=== PATIENT | female | born 1945 | race Caucasian/White ===

== ENCOUNTER → 2024-06-20 13:56 | Outpatient (CLI) | payer OTHER, MEDICARE, SELFPAY ==
--- NOTE | 2024-06-20 14:04 | DI.CT.S_ITS ---
PROCEDURE: CT UE LT WO CON INDICATIONS: PAIN JOINT SHOULDER LEFT TECHNIQUE: Noncontrast 0.75 mm thick sections acquired from the acromioclavicular joint to the inferior scapula, with coronal and sagittal reformatting. COMPARISON: [facility], CR, XR SHOULDER 2+ VIEWS LEFT, 02/19/2024, 10:06. FINDINGS: Image quality: Excellent. Bones: Mild degenerative changes of the acromioclavicular joint. Severe degenerative changes of the glenohumeral joint with joint space narrowing, subchondral cystic changes, and osteophytosis of the humeral head.. Calcification at the greater tuberosity, representing hydroxyapatite deposition disease. Additional chondrocalcinosis of the glenohumeral joint, representing CPPD arthropathy. No glenoid retroversion. No acute fracture or dislocation. Visualized left ribs are remarkable. Soft tissues: Large subscapularis bursitis. No significant subacromial/subdeltoid bursitis. No significant glenohumeral effusion. Visualized left lung is unremarkable. Status post aortic valve replacement. Coronary artery calcification, incompletely visualized. Moderate calcification of the aortic arch. 2.1 cm left thyroid nodule. IMPRESSION: 1. Severe degenerative changes of the glenohumeral joint. 2. 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 3. Large subscapular bursitis. 4. 2.1 cm left thyroid nodule. Recommend further evaluation with thyroid ultrasound. Dictated by: Mely Feliz M.D. on 06/21/2024 at 11:12 Approved by: Mely Feliz M.D. on 06/21/2024 at 11:18
== END ==
PROVIDERS: PCP Internal Medicine; Referring Provider Orthopaedic Surgery; Visit Provider Orthopaedic Surgery
DX: M11.012 Hydroxyapatite deposition disease, left shoulder (principal); M75.52 Bursitis of left shoulder; E04.1 Nontoxic single thyroid nodule; M25.512 Pain in left shoulder
CPT/HCPCS: 73200

== ENCOUNTER 2024-07-14 10:18 | Day surgery (SDC) | payer OTHER, MEDICARE, SELFPAY ==
[2024-06-30 13:37] VITALS: BMI 22.8
[2024-07-14] VITALS (13 sets, daily range): BP systolic 118–160; BP diastolic 45–62; PULSE 68–89; RESP 12–19; TEMP 36–36.7; O2SAT 93–99; BMI 22.8
--- NOTE | 2024-07-14 | DI.RAD.S_ITS ---
PROCEDURE: XR SHOULDER LT 1V INDICATIONS: TOTAL SHOULDER POST OP TECHNIQUE: Single view of the shoulder were acquired. COMPARISON: None. FINDINGS: Bones: Single frontal radiograph demonstrates reversed left shoulder arthroplasty with anatomic alignment of the prosthetic components. Scattered subcutaneous air overlying the left shoulder joint. No acute fracture or dislocation. Soft tissues: No suspicious soft tissue calcifications. IMPRESSION: Expected post operative appearance of reversed left shoulder arthroplasty. Dictated by: Noah Ferreira M.D. on 07/14/2024 at 16:40 Approved by: Noah Ferreira M.D. on 07/14/2024 at 16:42
--- NOTE | 2024-07-14 11:18 | PM.PREOP ---
Pre-operative Note Interval Note History & Physical reviewed/Exam performed by Physician: Yes Changes to H&P: No
[2024-07-14] MEDS: HYDROCODONE/ACET 5/325 TABLET 1 TAB PO ×2 (11:36→13:44)
[2024-07-14] MEDS: LACTATED RINGERS 1,000 ML 42 ML IV (11:38)
[2024-07-14] MEDS: CEFAZOLIN 2 GM/100 ML PREMIX 100 ML IV ×2 (12:14→20:05)
[2024-07-14] MEDS: TRANEXAMIC ACID 1,000 MG in SODIUM CHLORIDE 0.9% 100 ML 200 MG IV ×2 (12:18→13:02)
--- NOTE | 2024-07-14 12:26 | SUR.OPER ---
Beach chair with Stefann/Salbador shoulder positioner. Lower body on padded OR bed. Head in foam padded head cradle, secured with straps. Non-operative arm secured on gel pad across chest. Pillow under knees. Safety belt at chest. Cloth tape over blanket over lower legs.
--- NOTE | 2024-07-14 13:48 | PM.OP.1 ---
Operative Date/Time/Diagnoses Date of procedure: 07/14/24 Time of procedure: 13:48 Pre-op diagnosis: Left glenohumeral arthritis Post-op diagnosis: same Procedure & Clinicians Procedure: Left reverse total shoulder arthroplasty Same procedure as scheduled: Yes Indications: Indications: This is a 79-year-old female who has left glenohumeral arthritis. Symptoms have been present for years, insidious onset. Patient has failed a reasonable attempt at conservative therapy. After extensive discussion in clinic, they wished to go forward with surgery. Risks and benefits were described including the risk of infection, bleeding, damage to internal structures including nerves. We also discussed the risk of failure of surgery and the need for revision surgery as well as the risk of anesthesia. The patient expressed understanding with these risks and wished to go forward with surgery. Surgeon: Solomon Pedraza Superintendent Plant Protection: No Araiza Operative Notes Findings: Findings: Osteoarthritis of the glenoid and humeral head with 17? of glenoid anteversion as noted on preoperative imaging and under direct visualization Closure Type: primary Specimen(s): none sent Prosthetic devices, grafts, tissues, transplants, or devices: Tornier implants Base plate: standard 25 mm, full wedge Glenosphere: Standard 36 mm Stem: Perform 2+ Poly: 0, 55% coverage Estimated Blood Loss (mL): 200 Blood products transfused: none Procedure in detail: Patient was seen in the preoperative holding unit. The correct left shoulder was identified and marked with my initials. Again we discussed the risks and benefits of surgery and they wished to go forward with surgery. The patient was brought back to the operating room and placed supine on the operating table. Smooth endotracheal intubation was performed by anesthesia. All prominences were padded and they were placed into the beach chair position. Intravenous antibiotics were given. The left shoulder was then prepped with the standard sterile preparation and draping. A time-out was then performed in my initials were again identified on the correct shoulder. 1 g of IV tranexamic acid was given. A standard deltopectoral incision was made. Skin flaps were made. The cephalic vein was identified and retracted laterally. This was protected throughout the remainder of the case. Sharp dissection was made along the deltoid, subacromial and subcoracoid space to release adhesions. The conjoined tendon was identified and the axillary nerve was palpated and continuous using the tug test. It was protected throughout the remainder of the case. A brown retractor was placed underneath the deltoid muscle and a darach retractor underneath the conjoint tendon. The subscapularis muscle was ntoed to be intact. The anterior circumflex artery and associated veins on the lower border of the subscapularis were identified and tied off using 0-Vicryl. The biceps tendon was identified in the bicipital groove. This was released from its sheath, and taken from its origin on the glenoid and tied into the pectoralis tendon for a solid tenodesis. We then began a subscapularis peel. The subscapularis was tagged with an Ethibond suture. A 360 degree circumferential release of the subscapularis was performed with protection of the axillary nerve. The coracohumeral ligament was released at the base of the coracoid. The shoulder was then dislocated. Osteophytes were removed using combination of rongeur and osteotome. The rotator cuff was noted to be intact. An intramedullary guide was used set at version of 20?. Using an oscillating saw a conservative humeral head cut was made. Impaction reamers were reamed up to a size 2 stem with a built-in angle 135?. A neck protector was placed. Attention was then turned to the glenoid. After retracting the humeral head posteriorly a circumferential release was performed of the capsule with protection of the axillary nerve. The labrum was then released starting at the biceps anchor and going around the rim a small amount of triceps was released from the inferior glenoid. A center guide pin was then placed using the guide, followed by Reamer. After adequate cartilage was removed the boss was reamed and the centeral hole was drilled and measured. The base plate was then implanted and screwed into place with the wedge anterior in order to correct for anteversion of the glenoid. The peripheral screws were then sequentially drilled, measured, and placed. A 36 standard glenosphere was then selected and screwed into place onto the base plate. Turning back to the humerus, the humeral head was delivered and trialed with a +0 retentive. The arm was taken through range of motion and this was felt to be stable. The trial was then removed and a dilute Betadine wash was then performed with 1 L of sterile saline. Before placing the final implant, drill holes were made in the bicipital groove for the subscapularis repair, and sutures were passed through the drill holes. The final stem was then impacted into the humerus. The shoulder was then reduced and again brought through range of motion and was felt to be stable. The subscapularis was then repaired using a modified racking hitch with nice loupes. The deltopectoral interval was then closed with #2 Ethibond. The skin was closed with 2-0 vicryl and 3-0 Monocryl followed by Aquacel dressing. Patient was awoken from anesthesia and brought back to the postoperative recovery unit without issue. They were placed into a sling. Assisting participation: This operation could not have been safely performed (without compromising the technical results or length of the procedure) without the assistance of a skilled surgical garment assembler. The surgical garment assembler was medically necessary for proper positioning, retraction and manipulation of instruments, proper exposure, graft prep, and manipulation of tissue. Complications: none Post-operative Condition: stable Disposition: PACU Plan for aftercare: Postoperative instructions: Sling to remain on for 6 weeks. No external rotation past neutral for 6 weeks. Okay for the sling to come off for shower. Okay to shower over the Aquacel dressing. If any water gets underneath the dressing, remove the dressing. First postoperative visit in 2 weeks.
[2024-07-14] MEDS: HYDROMORPHONE 1 MG INJ IV (13:51)
[2024-07-14] MEDS: LACTATED RINGERS 1,000 ML 100 ML IV (14:00)
[2024-07-14] MEDS: hydrOXYzine HCL 25 MG TABLET PO (15:02)
[2024-07-14] MEDS: KETOROLAC 30 MG/ML VIAL 15 MG IV (15:02)
--- NOTE | 2024-07-14 16:39 | PT-IP ANOTE ---
Pt up to room after left reverse total shoulder. She is sleepy after surgery and wishes to initiate PT assessment next date.
[2024-07-14] MEDS: OXYCODONE IR 5 MG TABLET PO (16:47)
[2024-07-14 18:12] LABS: Hematocrit 31.4 % (36-46); Hemoglobin 9.9 g/dL (12.0-16.0)
[2024-07-14] MEDS: GABAPENTIN 300 MG CAPSULE 1200 MG PO (21:05)
[2024-07-14] MEDS: DOCUSATE 100 MG CAPSULE PO (21:05)
[2024-07-14] MEDS: HYDROCODONE/ACET 10/325 TABLET 1 TAB PO (21:05)
[2024-07-14] MEDS: ASPIRIN EC 81 MG TABLET PO (21:05)
[2024-07-14] MEDS: ACETAMINOPHEN 325 MG TABLET 650 MG PO (21:07)
[2024-07-15] MEDS: OXYCODONE IR 5 MG TABLET PO ×5 (02:28→22:02)
[2024-07-15] MEDS: ACETAMINOPHEN 325 MG TABLET 650 MG PO ×2 (02:28→07:20)
[2024-07-15] MEDS: CEFAZOLIN 2 GM/100 ML PREMIX 100 ML IV (03:57)
[2024-07-15 06:38] VITALS: BP 123/44; PULSE 64; RESP 14; TEMP 36.8; O2SAT 96
[2024-07-15 09:04] VITALS: BP 145/43; PULSE 77
[2024-07-15] MEDS: DOCUSATE 100 MG CAPSULE PO ×2 (09:05→20:03)
[2024-07-15] MEDS: ATORVASTATIN 20 MG TABLET PO (09:05)
[2024-07-15] MEDS: DULOXETINE 30 MG CAPSULE 60 MG PO (09:06)
[2024-07-15] MEDS: ASPIRIN EC 81 MG TABLET PO ×2 (09:07→20:03)
[2024-07-15] MEDS: METFORMIN HCL 500 MG TABLET 2000 MG PO (09:07)
[2024-07-15] MEDS: HYDROCODONE/ACET 5/325 TABLET 1 TAB PO ×3 (09:09→15:10)
--- NOTE | 2024-07-15 09:35 | PT.IIE ---
Current Diagnoses Primary osteoarthritis, left shoulder (07/14/24) Surgery Performed Operation Date: 07/14/24 12:45 Actual Procedures p Total Shoulder Arthroplasty - Reverse with biceps tenodesis(Left) - Solomon Pedraza MD Surgical History (Last Updated 06/30/24 @ 14:14 by Zofia Oliver, RN) History of cardiac cath (11/2019) History of reverse total replacement of right shoulder joint History of right cataract extraction History of total right knee replacement (2011) Hx of cholecystectomy Hx of eye surgery Hx of LASIK Hx of left cataract extraction (2007) Hx of lithotripsy Medical History (Last Updated 06/30/24 @ 14:20 by Zofia Oliver RN) Arthritis Chronic heart failure with preserved ejection fraction Concussion (01/2024) CVA (cerebral vascular accident) Diabetes Fatty liver GERD (gastroesophageal reflux disease) Headache Heart murmur History of COVID-19 (~2020) History of 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) HLD (hyperlipidemia) HTN (hypertension) Iron deficiency Nephrolithiasis Neuropathy Nontoxic multinodular goiter Osteoarthritis RBBB with left anterior fascicular block Seizure disorder Severe aortic stenosis Vitamin B12 deficiency Physical Therapy Inpatient Evaluation/Re-Eval M1 PT/OT-IP Prior Functional Status Start: 07/14/24 15:46 Freq: NEEDED Status: Active Protocol: Document 07/15/24 09:35 AB (Rec: 07/15/24 13:57 AB [id number]) Medical Review Prior Functional Status Medical History Reviewed Yes Communication able to make needs known Mobility and Gait pt stated that she was independent with all mobilities and ambulation without AD but occasionally uses a SPC Social History Household Members spouse Living Arrangements House Number of Floors (Floors) One Floor Number of Stairs To Enter/Railing? 2 steps to enter without rails 12 stteps L rail to 2nd level bedroom Home Environment Standard Height Toilet,Walk in Shower Home Equipment Shower Seat without Backrest, Hand Held Shower,Grab Bars Near Toilet,Grab Bars In Shower Additional Social History Comment pt stated that she has a wedge pillow she uses in bed to have HOB elevated M2 PT-IP Current Condition Start: 07/14/24 15:46 Freq: NEEDED Status: Active Protocol: Document 07/15/24 09:35 AB (Rec: 07/15/24 13:57 [id number]) Physical Therapy Current Condition Current Condition Evaluation Date 07/15/24 Treatment Diagnosis s/p L TSA reverse; difficulty in walking Onset Date 07/14/24 M3 PT-IP Subjective Start: 07/14/24 15:46 Freq: NEEDED Status: Active Protocol: Document 07/15/24 09:35 AB (Rec: 07/15/24 13:57 [id number]) Subjective Physical Therapy Visit Type Type Initial Evaluation Visit Start Time 09:35 Visit Stop Time 10:38 Number of TUBE WINDER Visits 0 Physical Therapy Visit Comments Patient Comments agreeable to do PT Therapy Pain Assessment Pain When Pain Assessed At Rest Pain Present Pain Present Pain Reported Location Left Shoulder Intensity 8 Scale Used Numeric (0 - 10) Pain Behaviors Guarding Pain Management Techniques Apply Cold,Distraction, Modification of Treatment,Re- positioning,Timing of Activity with Medications M4 PT-IP Mobility and Gait Start: 07/14/24 15:46 Freq: NEEDED Status: Active Protocol: Document 07/15/24 09:35 AB (Rec: 07/15/24 13:57 [id number]) PT-Bed Mobility Assessment Supine to Sit Supine to Sit Standby Assistance Sit to Supine Sit to Supine Standby Assistance PT-Transfer Assessment Sit to and From Stand Sit to and from Stand Contact Guard Assistance,1 Person Assistance,Use of Upper Extremities Equipment Transfer Assistive Device None,Gait Belt Orthotic/Prosthetic Devices or Brace: Yes Transfers Transfer Destination Bed Transfer Ability Level of Assist Contact Guard Assistance,1 Person Assistance,Use of Upper Extremities Comments Mobility Comments pt supine in bed and agreeable to do PT. obtained PLOF and home set up. spouse arrived. educated pt and spouse regarding pt's shoulder precautions. pt completed supine to sit SBA with HOB elevated to ~ 15 deg. pt able to sit on EOB SBA. no c/o dizziness. BP: 122/44. Assisted pt with sling management. educated spouse on how to assist pt with sling . pt with c/o increase L shoulder pain. educated and completed elbow/wrist/hand exercises. educated on pendulum exercise but not attempted to complete due to c /o increase shoulder pain and stated that she is not ready to do pendulum. pt completed sit to stand CGA and ambulated in room without AD CGA ~ 35 ft. presents with shuffling gait. pt sat on EOB. caregiver training conducted. educated spouse on how to use afety belt and how to assist pt. spouse was able to put safety belt on. assisted pt with ambulation in room without AD ~ 30 ft. educated pt and spouse with stair climbing. pt completed up/down step stool mod A and max cues DOUBLE CUT SAWYER. pt repeated x 2 sets. spouse was able to assist pt. pt requested to go back in bed . completed sit to supine SBA . positioned pt in bed. call light and table placed within reach. left pt with spouse. Gait Assessment Gait Gait Assistance Required: Contact Guard Assist Distance (Feet) 35 Able to Maintain Weight Bearing Status Yes During Gait Assistive Devices Assistive Device None,Gait Belt Orthotic/Prosthetic Devices or Brace: Yes Gait Deviations General Gait Pattern Decreased Stride Length, Decreased Feet Clearance,Step- to Gait Factors Limiting Gait Function Factors Limiting Gait Function Decreased Activity Tolerance, Decreased Strength,Limited Range of Motion,Pain,Poor Balance,Poor Safety Awareness Stair Climbing Assessment Evaluation Level of Assist On Stairs Moderate Assistance,1 Person Assistance Devices Stair Climbing Assistive Devices None Technique/Endurance Stair Climbing Direction Ascend and Descend Stair Climbing Technique Step to Step Number of Steps Climbed 1 Query Text: Stair Climbing Set # Repetitions (reps) 2 PT-Balance Assessment Sitting Balance and Reactions Static Sitting Balance Ability Normal Dynamic Sitting Balance Ability Good Standing Balance and Reactions Static Standing Balance Ability Good Dynamic Standing Balance Ability Fair Device Used without AD M5 PT-IP Objective Assessments Start: 07/14/24 15:46 Freq: NEEDED Status: Active Protocol: Document 07/15/24 09:35 AB (Rec: 07/15/24 13:57 AB [id number]) Orientation Orientation/Cognition Level of Alertness Alert Orientation Name,Situation Language Function Ability Hard of Hearing Safety Awareness Decreased Safety Awareness Memory Description Short Term Impaired Gross Range of Motion Lower Extremity ROM Assessment Within Functional Limits Strength Lower Extremity Strength Hip 4-/5 Knee 4-/5 Muscle Tone Muscle Tone WNL Yes M6 PT-IP Treatment Start: 07/14/24 15:46 Freq: NEEDED Status: Active Protocol: Document 07/15/24 09:35 AB (Rec: 07/15/24 13:57 AB [id number]) Physical Therapy Treatment Exercises Exercises Elbow Flexion/Extension,Wrist ROM,Hand ROM Education Education Provided Precautions,Weight Bearing Status,Post-Op Packet,Safety M7 PT-IP Assessment and Plan Start: 07/14/24 15:46 Freq: NEEDED Status: Active Protocol: Document 07/15/24 09:35 AB (Rec: 07/15/24 13:57 AB [id number]) PT Summary Assessment and Plan Potential Rehabilitation Potential Fair Status of Condition at Evaluation Evolving Summary Impairments Pain,ROM,Strength,Balance, Coordination,Sensation,Tone, Cognition,Bed Mobility, Transfers,Gait,Activity Tolerance Assessment Summary pt si a 79 y/o F s/p L TSA reverse POD 1. pt with L shoulder precautions and is NWB on LUE. pt requiring CGA with transfers and ambulation without AD and mod A for stair climbing. caregiver training conducted and spouse was able to assist pt with mobility. pt with c/o increase L shoulder pain affecting mobility and activity tolerance. pt plans to go home and spouse to assist. Goals Bed Mobility Goal Independent Transfer Goal Independent Gait Goal Independent Gait Distance 200 Other Goals up/down 2 steps without rails SBA up/down 12 steps L rail ascending SBA Days to Meet Goals 10 Frequency of Treatment Other frequency 1-2x/day Treatment Plan Physical Therapy Treatment Plan Bed Mobility Training,Transfer Training,Gait Training, Therapeutic Exercise,Balance Retraining,Post Op Education, Discharge Planning,Hot or Cold Pack,Neuromuscular Re-ed, Coordination Retraining,Manual Therapy Precautions Shoulder Precautions Sling,PROM,Internal Rotation to Body,No External Rotation, No Abduction,Forward Flexion to 90 degrees,Pendulums Weight Bearing Status Weight Bearing Status Non-Weight Bearing Allowed Weight Bearing Amount (enter % LUE NWB or #) (%) Recommendations To Nursing Amount of Assist Needed 1 Person Assist Discharge Recommendations PT Discharge Recommendations Home with 02/03 Assist Available,Home Health, Outpatient PT Transportation Needs at Discharge Private Vehicle,Wheelchair/ Cabulance
--- NOTE | 2024-07-15 11:33 | P.PN_ITS ---
Subjective Subjective Interval history: Shanda is a pleasant 79 year old female who is POD#1 s/p left reverse total shoulder arthroplasty by Dr. Pedraza. This morning patient reports she is doing okay but is still struggling to get her pain under control. She lives at home with her but reports he can only provide limited support so she wants to make sure her pain is better under control and she is able to ambulate safely on her own prior to d/c. She has been taking hydrocodone QHS Rx by her PCP leading up to surgery d/t her L shoulder pain. She does not have post-op PT scheduled. Denies fever, chills, chest pain, SOB, nausea, vomiting. Exam Vital Signs (past 8 hours): - 07/15/24 06:38 07/15/24 09:04 Temperature 98.3 F Pulse Rate 64 77 Respiratory Rate 14 Blood Pressure 123/44 L 145/43 H Pulse Oximetry 96 Oxygen Flow Rate 0 Oxygen Delivery Method Nasal Cannula Oxygen Flow Rate 0 Narrative Exam Narrative: Patient lying comfortably in bed during our interview today. No acute distress. AOx3. Grossly normal alignment of the LUE. 5/5 strength with wrist flexion, extension and health and wellness advisor. Gross sensation intact throughout bilateral upper extremities. Brisk capillary refill, pulses intact. Post-surgical Aquacel dressing clean, dry and intact over the left shoulder without drainage. Objective Labs 07/14/24 18:02 Labs: Laboratory Results - last 24 hr 07/14/24 18:02 Hgb 9.9 L Hct 31.4 L PFSH Medical History (Updated 06/30/24 @ 14:20 by Zofia Oliver RN) History of COVID-19 (~2020) RBBB with left anterior fascicular block Concussion (01/2024) Seizure disorder Osteoarthritis Nontoxic multinodular goiter Neuropathy Iron deficiency Heart murmur HLD (hyperlipidemia) CVA (cerebral vascular accident) Chronic heart failure with preserved ejection fraction Arthritis Headache Vitamin B12 deficiency Nephrolithiasis HTN (hypertension) Fatty liver History of 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) Severe aortic stenosis GERD (gastroesophageal reflux disease) Diabetes Surgical History (Updated 06/30/24 @ 14:14 by Zofia Oliver RN) Hx of cholecystectomy History of reverse total replacement of right shoulder joint History of right cataract extraction Hx of LASIK History of total right knee replacement (2011) Hx of eye surgery Hx of lithotripsy Hx of left cataract extraction (2007) History of cardiac cath (11/2019) Social History household members: spouse Smoking Status: Former smoker alcohol intake: former Assessment & Plan Post-op Postoperative Procedures: Procedures Operation Date: 07/14/24 12:45 Actual Procedure Side Surgeon p Total Shoulder Arthroplasty - Reverse with biceps tenodesis Left Solomon Pedraza MD Postoperative plan narrative: 1) Plan to discharge to home tomorrow with pending improved pain control. Patient will need assistance getting set up, it appears a referral was already sent to [place]. 2) Continue multimodal pain management with ice to the shoulder for additional pain control. 3) ASA b.i.d. for DVT prophylaxis. 4) Start outpatient physical therapy to work on range of motion and mobility. Will send a referral to [facility]. Stressed the importance of patient scheduling these appts YVONNE. 5) Keep dressing intact, clean, dry until 2 week postop appointment. No soaking the incision site in pools or tubs. No topical ointments or creams to the incision site. 6) Follow up at [facility] in 2 weeks for a postop appointment and wound check. All patient's questions were answered, they demonstrates understanding and are in agreement with the plan. Call our office if any questions or concerns arise.
[2024-07-15] MEDS: INFLUENZA HD VACCINE 0.5 ML SYRINGE IM (11:37)
[2024-07-15 12:00] VITALS: BP 144/50; PULSE 61; RESP 15; TEMP 36.5; O2SAT 96
--- NOTE | 2024-07-15 12:47 | OT.IPNOTE ---
Check on pt for OT eval and states in too much pain at this time to get up.
--- NOTE | 2024-07-15 13:24 | OT.IPNOTE ---
Attempted OT eval again and pt states in too much apin and not wanting to get up. Pt states to go home and have home health.
--- NOTE | 2024-07-15 15:35 | CM.DANOTE ---
Initial DCP Assessment Note Pt is a 79 yo female, resident of [place], now POD#1 from reverse total shoulder by Dr Pedraza PCP: Kenji Vazquez Payer: Alexia/YONATHAN Reviewed chart, Therapy has cleared pt for return home w/sp to assist and pt has planned for home. According to RN, patient is complaining of 10/10 pain this afternoon. Met w/patient who reports she lives independently with spouse in [place]. Patient plans to return home over the next 24-48 hrs and requests referral to . Any agency but [facility]. Placed call to [facility], spoke to Tresa. Good availability in [place], so emailed this referral to Tresa including facesheet, H+P, PT note, completed F2F and HH order. [facility] verifying patient's insurance now. Plan: Discharge home w/sp to transport anticipated, likely [facility] for RN/PT/OT/SALES DIRECTOR- being reviewed now. LOUISA Walker Discharge Planning/Care Management CM Discharge Assessment Start: 07/15/24 15:23 Freq: Status: Active Protocol: Document 07/15/24 15:23 GORDO (Rec: 07/15/24 15:35 GORDO [id number]) Discharge Planning Assessment Assigned Back Padder LOUISA Saleh DPOA/Assigned Designee Name Checo Marinelli, mark Contact Information [phone] Advance Directives? No History Provided By Patient,Medical Record Prior Living Arrangements House Household Members spouse Type of transporation used prior to Drives own vehicle admit Independent with ADL's Yes Is patient alert and oriented? Yes Patient/Family Preference Home with Home Health Barriers to Discharge Yes Comment Currently, patient reporting 10/10 pain and tells the clinical team she will not be discharging home for another 24-48 hrs. Discharge Plan Home with Home Health Referrals Initiated Home Health Additional Comment Referral made to [facility] RN/PT/OT/SALES DIRECTOR. If patient plan is home with home health Yes : Has [facility] face to face form been completed? Medicare Choice List Provided Yes SNF/HH Preference Discussed preference with patient and she would like any HH agency near [place] other than [facility]. Referral made to [facility] for calendar availability. Comment Patient has aetna and [employer] (?) unsure which is primary. [facility] reviewing.
--- NOTE | 2024-07-15 17:42 | PT-IP ANOTE ---
checked on pt and pt refused PT. stated that she is having a lot of pain and does not want to get up.
[2024-07-15 20:00] VITALS: BP 131/52; PULSE 96; RESP 20; TEMP 37.1; O2SAT 91
[2024-07-15] MEDS: GABAPENTIN 300 MG CAPSULE 1200 MG PO (20:03)
[2024-07-15] MEDS: HYDROCODONE/ACET 10/325 TABLET 1 TAB PO (20:04)
[2024-07-16] MEDS: OXYCODONE IR 5 MG TABLET PO ×3 (02:24→09:46)
[2024-07-16] MEDS: ACETAMINOPHEN 325 MG TABLET 650 MG PO ×2 (02:25→08:20)
[2024-07-16 08:00] VITALS: BP 136/54; PULSE 94; RESP 18; TEMP 36.8; O2SAT 91
[2024-07-16] MEDS: DOCUSATE 100 MG CAPSULE PO (08:21)
[2024-07-16] MEDS: ASPIRIN EC 81 MG TABLET PO (08:22)
[2024-07-16] MEDS: METFORMIN HCL 500 MG TABLET 2000 MG PO (08:22)
[2024-07-16] MEDS: DULOXETINE 30 MG CAPSULE 60 MG PO (08:22)
[2024-07-16] MEDS: ATORVASTATIN 20 MG TABLET PO (08:22)
[2024-07-16 08:25] VITALS: BP 136/54
[2024-07-16] MEDS: FUROSEMIDE 20 MG TABLET PO (08:28)
--- NOTE | 2024-07-16 09:36 | PM.PNPO.1 ---
Subjective Subjective Date Patient Seen: 07/16/24 Time Patient Seen: 09:37 Interval history: Patient is found sitting in bed. She states she is in pain and has minimal relief with oral medications. She does not want to work with therapy. She says therapy causes her pain. She does not feel ready to go home yet due to pain. Denies any shortness of breath nausea vomiting fever or chills. Pain is localized over the surgical site. Exam Vital Signs (past 8 hours): - 07/16/24 08:00 07/16/24 08:25 Temperature 98.3 F Pulse Rate 94 H Respiratory Rate 18 Blood Pressure 136/54 L 136/54 L Pulse Oximetry 91 Oxygen Flow Rate 0 Oxygen Delivery Method Nasal Cannula Oxygen Flow Rate 0 Narrative Exam Narrative: Grossly normal alignment of the LUE. No signs of ecchymosis or edema. 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 Gross sensation intact throughout bilateral upper extremities. Brisk capillary refill, pulses intact. Post-surgical Aquacel dressing clean, dry and intact over the left shoulder without drainage. Resp Effort & Inspection: normal respiratory effort and able to speak in complete sentences Objective Labs 07/14/24 18:02 [facility] Medical History (Updated 06/30/24 @ 14:20 by Zofia Oliver RN) History of COVID-19 (~2020) RBBB with left anterior fascicular block Concussion (01/2024) Seizure disorder Osteoarthritis Nontoxic multinodular goiter Neuropathy Iron deficiency Heart murmur HLD (hyperlipidemia) CVA (cerebral vascular accident) Chronic heart failure with preserved ejection fraction Arthritis Headache Vitamin B12 deficiency Nephrolithiasis HTN (hypertension) Fatty liver History of 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) Severe aortic stenosis GERD (gastroesophageal reflux disease) Diabetes Surgical History (Updated 06/30/24 @ 14:14 by Zofia Oliver RN) Hx of cholecystectomy History of reverse total replacement of right shoulder joint History of right cataract extraction Hx of LASIK History of total right knee replacement (2011) Hx of eye surgery Hx of lithotripsy Hx of left cataract extraction (2007) History of cardiac cath (11/2019) Social History household members: spouse Smoking Status: Former smoker alcohol intake: former Assessment & Plan Post-op Postoperative Procedures: Procedures Operation Date: 07/14/24 12:45 Actual Procedure Side Surgeon p Total Shoulder Arthroplasty - Reverse with biceps tenodesis Left Solomon Pedraza MD Postoperative day: 2 Postoperative plan narrative: Baseline pain control acetaminophen 650 mg q.6hr. and oxycodone 5 mg q.4 hours prn for breakthrough pain. Patient has baseline hydrocodone/acetaminophen 10/325mg at bedtime preoperatively. aspirin 81 mg b.i.d. for DVT prophylaxis. Encouraged patient to work with therapy. Plan for discharge today or tomorrow. Time Spent With Patient Time with patient: 15-24 minutes Quality VTE Deep Vein Thrombosis/Pulmonary Embolism Present on Admission: No
--- NOTE | 2024-07-16 10:19 | PM.DS.1 ---
History of Present Illness History of Present Illness Date Patient Seen: 07/16/24 Time Patient Seen: 10:19 Chief complaint: OPB Narrative: This is a 79-year-old female who has left glenohumeral arthritis. Symptoms have been present for years, insidious onset. Patient has failed a reasonable attempt at conservative therapy. After extensive discussion in clinic, they wished to go forward with surgery. Risks and benefits were described including the risk of infection, bleeding, damage to internal structures including nerves. We also discussed the risk of failure of surgery and the need for revision surgery as well as the risk of anesthesia. The patient expressed understanding with these risks and wished to go forward with surgery. Discharge Providers Provider Discharge Date: 07/16/24 Primary care physician: Kenji Vazquez DO Consults: 07/14/24 14:45 Consult to Discharge Planning Routine Comment: Consult to Occupational Therapy Evaluate & Treat Comment: Physician Instructions: Evaluate and treat Consult to Physical Therapy Evaluate & Treat Comment: Physician Instructions: Evaluate and Treat 07/15/24 15:20 Consult to Home Health Routine Comment: Reason For Exam: Home health services upon discharge Discharge provider: He Cerda PA-C Summary Hospital Course Discharge Diagnosis: Left glenohumeral arthritis Hospital Course: Procedure: Left reverse total shoulder arthroplasty Same procedure as scheduled: Yes Surgeon: Solomon Pedraza Inspector Casing: No Araiza Operative Notes Findings: Osteoarthritis of the glenoid and humeral head with 17? of glenoid anteversion as noted on preoperative imaging and under direct visualization Closure Type: primary Specimen(s): none sent Prosthetic devices, grafts, tissues, transplants, or devices: Tornier implants Base plate: standard 25 mm, full wedge Glenosphere: Standard 36 mm Stem: Perform 2+ Poly: 0, 55% coverage Estimated Blood Loss (mL): 200 Blood products transfused: none Status at Discharge Cognitive/behavioral status at discharge: oriented Functional status at discharge: independent ambulation Overall status at discharge: patient is progressing back to baseline Time Spent with Patient Time spent: Less than 30 minutes Exam Vital Signs (past 8 hours): - 07/16/24 08:00 07/16/24 08:25 Temperature 98.3 F Pulse Rate 94 H Respiratory Rate 18 Blood Pressure 136/54 L 136/54 L Pulse Oximetry 91 Oxygen Flow Rate 0 Oxygen Delivery Method Nasal Cannula Oxygen Flow Rate 0 Narrative Exam Narrative: Patient's states pain is marginally under control with oral medications. Denies any SOB, nausea vomiting fever or chills. Pain is localized over surgical site. No numbness or tingling into upper extremity. She worked with therapy once but Grossly normal alignment of the LUE. 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 Gross sensation intact throughout bilateral upper extremities. Brisk capillary refill, pulses intact. Post-surgical Aquacel dressing clean, dry and intact over the left shoulder without drainage. Resp Effort & Inspection: normal respiratory effort and able to speak in complete sentences Objective Labs 07/14/24 18:02 [facility] Medical History (Updated 06/30/24 @ 14:20 by Zofia Oliver RN) History of COVID-19 (~2020) RBBB with left anterior fascicular block Concussion (01/2024) Seizure disorder Osteoarthritis Nontoxic multinodular goiter Neuropathy Iron deficiency Heart murmur HLD (hyperlipidemia) CVA (cerebral vascular accident) Chronic heart failure with preserved ejection fraction Arthritis Headache Vitamin B12 deficiency Nephrolithiasis HTN (hypertension) Fatty liver History of 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) Severe aortic stenosis GERD (gastroesophageal reflux disease) Diabetes Surgical History (Updated 06/30/24 @ 14:14 by Zofia Oliver RN) Hx of cholecystectomy History of reverse total replacement of right shoulder joint History of right cataract extraction Hx of LASIK History of total right knee replacement (2011) Hx of eye surgery Hx of lithotripsy Hx of left cataract extraction (2007) History of cardiac cath (11/2019) Social History household members: spouse Smoking Status: Former smoker alcohol intake: former Discharge Assessment & Plan Assessment and Plan Assessment: Status post left TSA Plan of Treatment: Patient does not wish to work with PT/OT any further while inpatient. Patient is currently take oral medications for pain relief. It was explained that these medications can be Rx'ed for her to take at home. Patient is in agreement to be discharged home. Base line paincontrol acetaminophen 650mg q6hr prn. Prescribed oxycodone 5mg q4hr prn for breakthrough pain. Patient takes hydrocoone/acetaminophen 10/325 qhs baseline pre-op. ASA 81mg bid for 4 weeks post op for DVT prevention. Start outpatient PT within 7 to 10 days. Keep left arm in immobilize4 at all times. May remove during shower. No abduction or external ortation past midline Follow up in clinic in 2 weeks for wound check. Discharge Plan Discharge Plan Patient Disposition: Home Discharge orders & Medications Discharge Orders: Discharge (Order); Ordered 07/16/24 Ordered By: He Cerda Prescriptions: New docusate sodium 100 mg tablet 100 mg PO BID PRN (Reason: constipation) Qty: 30 0RF aspirin 81 mg Tablet,Delayed Release (Dr/Ec) 81 mg PO BID Qty: 60 0RF oxycodone 5 mg Tablet 5 mg PO Q4HR PRN (Reason: Post operative Pain, Moderate (4-6)) Qty: 40 0RF Rx Instructions: Post op exempt acetaminophen 325 mg Tablet 650 mg PO Q6H Qty: 120 0RF Continued atorvastatin 20 mg Tablet 20 mg PO DAILY hydrocodone-acetaminophen 10-325 mg Tablet 1 tab PO BEDTIME metformin 1,000 mg Tablet 2,000 mg PO QAM losartan 25 mg Tablet 25 mg PO DAILY gabapentin 300 mg Capsule 1,200 mg PO BEDTIME furosemide 20 mg Tablet 20 mg PO Q OTHER DAY duloxetine 60 mg Capsule,Delayed Release(Dr/Ec) 60 mg PO DAILY Mounjaro 7.5 mg/0.5 mL Pen Injector 7.5 mg SUBCUT QWEEK Patient Comments: Takes on Thursday Follow up/Referrals: Solomon Pedraza MD [Physician] - (Follow up at [facility] as scheduled in 2 weeks. ) Kenji Vazquez DO [Primary Care Provider] - Diet/Activity/Treatments Diet: Diet as Tolerated Activity: Remain sling and with no external rotation past neutral for 6 weeks. Work with outpatient PT to improve ROM and mobility. Cold/Heat Therapy: Ice to the shoulder for additional pain control. Skin/Wound/Dressing Care Report to your healthcare provider any signs of infection, such as:: chills, fever, night sweats, unusual drainage and unusual redness Dressing: Keep dressing intact, clean and dry until 2 week post-op appointment. No soaking the incision site in pools or tubs. No topical ointments or creams to the incision site. Visit Report/Discharge Packet Instructions: DI for Prescription Opioid Use, DI for Shoulder Replacement Stand Alone Forms: Patient Portal/API, Stroke Signs & Symptoms, Surgery Discharge Discharge Data Primary Care Provider: Kenji Vazquez Attending Provider: Solomon Pedraza
--- NOTE | 2024-07-16 10:55 | PT-IP ANOTE ---
Pt states she doesn't want anything to do with physical therapy.
--- NOTE | 2024-07-16 11:30 | CM.DPNOTE ---
DCP Note ENGINEERING FACULTY reviewed EMR. Pt POD2 from reverse total shoulder. Per chart review, dc order in. Per FRONT END SOFTWARE ENGINEER David, cleared for home with HH to follow. ENGINEERING FACULTY and [facility] MICHELLE Hall met with pt and spouse in room. [facility] MICHELLE Hall confirmed that as of now there was no [employer] approval for INPT status. Pt claims she was told she would be INPT by Tresa from the ortho team. ENGINEERING FACULTY/RN attempted to explain that being admitted to floor post op is not the same as INPT status. Unclear if pt fully understood the difference despite multiple attempts. Pt/Spouse confirm agreement with dc home, preference [facility] to follow, denies other needs or questions. Tresa from [facility] confirms they can accept pt. F2f and order previously sent. ENGINEERING FACULTY emailed Tresa bartlett summary. P: home today with spouse support and [facility] to follow. no other CM needs identified at this time. CM team will continue to follow as needed LOUISA Zimmerman
--- NOTE | 2024-07-16 11:33 | PC.NURSE ---
D/c instructions reviewed with pt and her spouse, including activity restrictions, ways to reduce constipation with opioid use, and s/s of stroke. IV removed. Pt dressed with assistance of STATION OPERATOR. Confirmed she had all of her belongings. Pt exited via w/c with assistance of STATION OPERATOR and spouse to private vehicle.
--- NOTE | 2024-07-20 06:49 | PC.NURSE ---
Late entry: Hydrocodone 5/325 given at ~0550 AM 07/15/24 for pain 5/10 in L shoulder.
== END 2024-07-16 12:05 | disposition home or self-care (01) ==
LOC: OR 10:20 → AC 10:21
PROVIDERS: Physician Assistant Surgical; PCP Internal Medicine; Referring Provider Orthopaedic Surgery; Visit Provider Orthopaedic Surgery
PROC: (CPT 23472; principal; 2024-07-14 12:45)
DX: M19.012 Primary osteoarthritis, left shoulder (principal); G89.18 Other acute postprocedural pain; Z23 Encounter for immunization; D64.9 Anemia, unspecified; Z95.3 Presence of xenogenic heart valve; E11.9 Type 2 diabetes mellitus without complications; Z79.84 Long term (current) use of oral hypoglycemic drugs; Z87.891 Personal history of nicotine dependence; M25.712 Osteophyte, left shoulder
CPT/HCPCS: 23472; 64415; 73020; 82962; 85014; 85018; 90471; 90662; 97162; 97530; C1776; A9270; J0690; J1100; J1171; J1885; J2405; J2704; J3010